=== PATIENT | male | born 2000 | race Hispanic/Latino ===

== ENCOUNTER 2024-05-19 16:18 | Emergency (ER) | payer OTHER ==
[2024-05-19] MEDS ORDERED: Benzonatate 100 MG CAP ONE (17:10)
[2024-05-19] MEDS ORDERED: Loratadine 10 MG TAB PO SCH (17:45)
[2024-05-19] MEDS ORDERED: Fluticasone Propionate Nasal Spray 16 gm Bottle NASAL SCH (17:45)
== END 2024-05-19 18:29 | disposition home or self-care (01) ==
LOC: CSHERS 16:18
DX: J30.9 Allergic rhinitis, unspecified (principal); R05.9 Cough, unspecified; F17.210 Nicotine dependence, cigarettes, uncomplicated; F17.290 Nicotine dependence, other tobacco product, uncomplicated
CPT/HCPCS: 71046

== ENCOUNTER 2024-06-17 16:59 | Emergency (ER) | payer OTHER ==
[2024-06-17] MEDS ORDERED: Acetaminophen 500 MG TAB ONE (19:45)
[2024-06-17] MEDS ORDERED: Ibuprofen 200 MG TAB ONE (21:00)
== END 2024-06-17 22:05 | disposition home or self-care (01) ==
LOC: CSHERS 16:59
DX: L03.211 Cellulitis of face (principal); F17.290 Nicotine dependence, other tobacco product, uncomplicated
CPT/HCPCS: 99283